=== PATIENT | female | born 1985 | race Caucasian/White ===

== ENCOUNTER 2019-05-10 05:27 | Inpatient (IN) | payer MEDICAID ==
[2019-05-10] MEDS: LACTATED RINGER'S 1,000 ML IV ×2 (06:25→07:10)
[2019-05-10 06:49] LABS: ADD MAN DIFF? NO
[2019-05-10 06:52] LABS: WHITE BLOOD COUNT 8.9 10^3/ul (4.8-10.8)
[2019-05-10 06:52] LABS: BASOPHILS % 0.3 % (0.0-2.0); EOSINOPHILS # 0.1 10^3/ul (0.0-0.5); EOSINOPHILS % 0.9 % (0.0-7.0); HEMATOCRIT 40.2 % (37.0-47.0); LYMPHOCYTES # 1.6 10^3/ul (0.8-2.9); LYMPHOCYTES % 18.4 % (15.0-51.0); MEAN CORPUSCULAR HGB CONC 32.3 g/dl (32.0-37.0); MEAN CORPUSCULAR VOLUME 86.5 fl (82.0-101.0); MEAN PLATELET VOLUME 9.8 fl (7.4-10.4); MONOCYTE # 0.9 10^3/ul (0.3-0.9); MONOCYTES % 9.8 % (0.0-11.0); NEUTROPHIL # 6.1 10^3/ul (1.6-7.5); NEUTROPHILS % 68.5 % (39.0-77.0); PLATELET COUNT 236 10^3/UL (140-415); RED BLOOD COUNT 4.65 10^6/ul (4.20-5.40); RED CELL DISTRIBUTION WIDTH 17.2 % (11.5-14.5)
[2019-05-10] MEDS ORDERED: OXYTOCIN 30 UNITS/LR 500 ML IV ×2 (07:00→12:30)
[2019-05-10] MEDS ORDERED: METHYLERGONOVINE 0.2 MG INJ IM ×2 (07:00→12:30)
[2019-05-10] MEDS ORDERED: CARBOPROST 250 MCG INJ IM ×2 (07:00→12:30)
[2019-05-10] MEDS ORDERED: MISOPROSTOL 200 MCG TAB PR ×2 (07:00→12:30)
[2019-05-10 07:12] LABS: INR 0.89; PROTIME 12.1 Sec (11.9-14.9); PT RATIO 0.9
[2019-05-10 07:38] LABS: HEPATITIS B SURFACE ANTIGEN NEGATIVE (NEGATIVE)
[2019-05-10] MEDS ORDERED: OXYTOCIN 30 UNITS/LR 500 ML BAG IV (07:46)
[2019-05-10] MEDS ORDERED: morphine SULFATE/PF (10 MG/10 ML) INJ (07:46)
[2019-05-10] MEDS ORDERED: ONDANSETRON 4 MG INJ (07:47)
[2019-05-10] MEDS ORDERED: OXYTOCIN 10 UNIT INJ (07:47)
[2019-05-10] MEDS ORDERED: PHENYLephrine 10 MG INJ (08:18)
[2019-05-10] MEDS ORDERED: FENTAnyl 50 MCG/ML VIAL (08:29)
[2019-05-10] MEDS ORDERED: MIDAZOLAM 1 MG/ML 2 ML INJ (08:48)
[2019-05-10] MEDS ORDERED: DIPHENHYDRAMINE 50 MG INJ IV (09:30)
[2019-05-10] MEDS ORDERED: ONDANSETRON 4 MG INJ IV (09:30)
[2019-05-10] MEDS ORDERED: NALOXONE (0.4 MG/ML) INJ IV (09:30)
[2019-05-10] MEDS ORDERED: morphine 2 MG INJ IV (09:30)
[2019-05-10] MEDS: OXYTOCIN 30 UNITS/LR 500 ML IV ×4 (10:05→16:59)
[2019-05-10] MEDS: CEFAZOLIN 2 GM/50 ML (PMX) 50 ML IVPB (10:05)
[2019-05-10] MEDS ORDERED: HYDROCODONE/APAP (5/325) TAB PO (12:30)
[2019-05-10] MEDS ORDERED: NACL 0.9% 3 ML SYG IV (12:30)
[2019-05-10] MEDS: KETOROLAC 30 MG INJ IV ×2 (16:57→23:29)
[2019-05-10 17:12] LABS: RAPID PLASMA REAGIN NONREACTIVE (NR)
[2019-05-10] MEDS: LANOLIN HPA 1 PKT TOP (23:29)
[2019-05-11] MEDS: LACTATED RINGER'S 1,000 ML IV ×3 (05:10→15:00)
[2019-05-11] MEDS: KETOROLAC 30 MG INJ IV (05:16)
[2019-05-11 08:50] LABS: ADD MAN DIFF? NO
[2019-05-11 08:53] LABS: BASOPHILS % 0.3 % (0.0-2.0); EOSINOPHILS # 0.1 10^3/ul (0.0-0.5); EOSINOPHILS % 0.3 % (0.0-7.0); HEMATOCRIT 32.1 % (37.0-47.0); HEMOGLOBIN 10.3 g/dl (12.0-16.0); LYMPHOCYTES # 1.4 10^3/ul (0.8-2.9); LYMPHOCYTES % 8.6 % (15.0-51.0); MEAN CORPUSCULAR HEMOGLOBIN 27.9 pg (29.0-33.0); MEAN CORPUSCULAR HGB CONC 32.1 g/dl (32.0-37.0); MONOCYTE # 1.2 10^3/ul (0.3-0.9); MONOCYTES % 7.4 % (0.0-11.0); NEUTROPHIL # 13.1 10^3/ul (1.6-7.5); NEUTROPHILS % 82.7 % (39.0-77.0); PLATELET COUNT 189 10^3/UL (140-415); RED BLOOD COUNT 3.69 10^6/ul (4.20-5.40); RED CELL DISTRIBUTION WIDTH 16.8 % (11.5-14.5)
[2019-05-11 08:53] LABS: WHITE BLOOD COUNT 15.9 10^3/ul (4.8-10.8)
[2019-05-11] MEDS: HYDROCODONE/APAP (5/325) TAB PO ×3 (09:50→23:23)
[2019-05-11] MEDS: IBUPROFEN 800 MG TAB PO ×2 (13:37→21:55)
[2019-05-12] MEDS: LACTATED RINGER'S 1,000 ML IV (01:49)
[2019-05-12] MEDS: HYDROCODONE/APAP (5/325) TAB PO ×3 (05:02→19:43)
[2019-05-12] MEDS: IBUPROFEN 800 MG TAB PO ×3 (06:06→21:49)
[2019-05-12] MEDS: DOCUSATE SODIUM 100 MG CAP PO (21:49)
[2019-05-13] MEDS: IBUPROFEN 800 MG TAB PO ×2 (06:38→14:00)
[2019-05-13 08:25] LABS: ADD MAN DIFF? NO
[2019-05-13 08:28] LABS: WHITE BLOOD COUNT 12.6 10^3/ul (4.8-10.8)
[2019-05-13 08:28] LABS: BASOPHILS % 0.2 % (0.0-2.0); EOSINOPHILS # 0.1 10^3/ul (0.0-0.5); EOSINOPHILS % 0.9 % (0.0-7.0); HEMATOCRIT 31.2 % (37.0-47.0); HEMOGLOBIN 10.2 g/dl (12.0-16.0); LYMPHOCYTES # 1.2 10^3/ul (0.8-2.9); LYMPHOCYTES % 9.1 % (15.0-51.0); MEAN CORPUSCULAR HEMOGLOBIN 28.7 pg (29.0-33.0); MEAN CORPUSCULAR HGB CONC 32.7 g/dl (32.0-37.0); MEAN CORPUSCULAR VOLUME 87.9 fl (82.0-101.0); MEAN PLATELET VOLUME 9.3 fl (7.4-10.4); MONOCYTE # 0.6 10^3/ul (0.3-0.9); MONOCYTES % 4.6 % (0.0-11.0); NEUTROPHIL # 10.6 10^3/ul (1.6-7.5); NEUTROPHILS % 83.8 % (39.0-77.0); PLATELET COUNT 253 10^3/UL (140-415); RED BLOOD COUNT 3.55 10^6/ul (4.20-5.40); RED CELL DISTRIBUTION WIDTH 16.6 % (11.5-14.5)
[2019-05-13] MEDS: DOCUSATE SODIUM 100 MG CAP PO (10:30)
[2019-05-13] MEDS: DIPHTH/TET/ACEL PERTUSS (ADULT) 0.5 ML VIAL IM* (10:32)
[2019-05-13] MEDS: HYDROCODONE/APAP (5/325) TAB PO (12:38)
[2019-05-13] MEDS: MAGNESIUM CITRATE 300 ML BTL PO (15:17)
== END 2019-05-13 16:38 | disposition home or self-care (01) | DRG 788 ==
LOC: OBT 05:27 → L-D 05:33 → OBT 05:45 → L-D 05:45 → PP1 12:47
PROVIDERS: Obstetrics & Gynecology
PROC: 10D00Z1 Extraction of Products of Conception, Low, Open Approach (ICD-10-PCS; principal; 2019-05-10 08:30)
PROC: 3E033VJ Introduction of Other Hormone into Peripheral Vein, Percutaneous Approach (ICD-10-PCS; 2019-05-10 08:30)
DX: O60.13X0 Preterm labor second trimester with preterm delivery third trimester, not applicable or unspecified (principal); O32.1XX2 Maternal care for breech presentation, fetus 2; O99.214 Obesity complicating childbirth; Z3A.35 35 weeks gestation of pregnancy; Z37.0 Single live birth; O30.003 Twin pregnancy, unspecified number of placenta and unspecified number of amniotic sacs, third trimester
CPT/HCPCS: 76815; 85025; 85610; 85730; 86592; 86850; 86900; 86901; 87340; 88307; 90715; 99464

== ENCOUNTER 2019-05-17 06:43 | Emergency (ER) | payer MEDICAID | END 2019-05-17 07:31 | disposition home or self-care (01) | LOC: FTE 07:31 | DX: R68.83 Chills (without fever) (principal); Z48.01 Encounter for change or removal of surgical wound dressing | CPT/HCPCS: 99281; Z7502 ==